=== PATIENT | male | born 1955 | race Two or more races ===

== ENCOUNTER → 2024-02-21 | Outpatient (CLI) | payer MEDICARE, SELFPAY ==
[2024-02-21 11:12] LABS: Basophils % (Auto) 1 % (0-2.5); Eosinophils # (Auto) 0.1 Thou/mm3 (0.0-0.5); Eosinophils % (Auto) 2 % (0-10); Hematocrit 41.6 % (41.0-53.0); Hemoglobin 13.3 g/dL (13.5-16.0); Immature Granulocytes % (Auto) 0 % (0-0); Immature Granulocytes Auto 0.01 Thou/mm3 (0.00-0.00); Lymphocytes % (Auto) 24 % (10-50); Mean Corpuscular Hemoglobin 27.3 pg (25.0-35.0); Mean Corpuscular Volume 85 fL (80-100); Monocytes # (Auto) 0.4 Thou/mm3 (0.0-0.8); Monocytes % (Auto) 10 % (0-12); Neutrophils # (Auto) 2.7 Thou/mm3 (1.8-7.7); Neutrophils % (Auto) 63 % (37-80); Nucleated Red Blood Cell % 0 /100 WBC (0); Platelet Count 216 Thou/mm3 (140-440); RDW Standard Deviation 47.3 fL (35.1-43.9); Red Blood Count 4.88 Miln/mm3 (4.50-5.90); White Blood Count 4.3 Thou/mm3 (3.8-10.6)
[2024-02-21 11:28] LABS: Iron 86 mcg/dL (65-175)
[2024-02-21 11:52] LABS: Alanine Aminotransferase 87 U/L (10-49); Albumin, Serum 4.3 gm/dL (3.4-4.8); Alkaline Phosphatase 319 U/L (46-116); Aspartate Amino Transferase 90 U/L (0-34); Bilirubin,Direct 0.2 mg/dL (0.0-0.3); Thyroid Stimulating Hormone 4.99 uIU/mL (0.55-4.78); Total Protein 6.6 gm/dL (5.7-8.2)
[2024-02-21 14:35] LABS: Bilirubin,Total 0.5 mg/dL (0.3-1.2); Cardiac Risk Estimate 2.2 RATIO (4.0-6.7); Cholesterol 125 mg/dL (132-200); HDL Cholesterol 56 mg/dL (40-60); LDL Cholesterol,Calculated 60 mg/dL (0-130); Triglycerides 47 mg/dL (30-150)
[2024-02-21 15:46] LABS: Vitamin B12 641 pg/mL (211-911)
[2024-02-21 16:05] LABS: Glucose Estimated Average 105 mg/dL (80-131); Hemoglobin A1C 5.3 % Hgb (4.8-6.0)
== END | disposition home or self-care (01) ==
PROVIDERS: PCP Family Medicine; Referring Provider Internal Medicine Cardiovascular Disease; Visit Provider Nurse Practitioner Family
DX: D64.9 Anemia, unspecified (principal); R73.01 Impaired fasting glucose; E03.9 Hypothyroidism, unspecified; I25.118 Atherosclerotic heart disease of native coronary artery with other forms of angina pectoris; E78.5 Hyperlipidemia, unspecified
CPT/HCPCS: 36415; 80061; 80076; 82607; 83036; 83540; 84443; 85025

== ENCOUNTER → 2024-02-24 | Outpatient (CLI) | payer MEDICARE, SELFPAY ==
[2024-03-02 06:59] LABS: Fecal Globin Result DETECTED (NOT DETECTED)
== END | disposition home or self-care (01) ==
LOC: SLDO 12:56
PROVIDERS: PCP Family Medicine; Referring Provider Nurse Practitioner Family; Visit Provider Nurse Practitioner Family
DX: D64.9 Anemia, unspecified (principal); R73.01 Impaired fasting glucose; E03.9 Hypothyroidism, unspecified
CPT/HCPCS: 82274; G0328

== ENCOUNTER → 2024-03-17 | Outpatient (CLI) | payer MEDICARE, SELFPAY ==
[2024-03-17 10:26] LABS: Alanine Aminotransferase 67 U/L (10-49); Albumin, Serum 4.4 gm/dL (3.4-4.8); Albumin/Globulin Ratio 1.8 (1.2-2.2); Alkaline Phosphatase 225 U/L (46-116); Anion Gap 8 (7-16); Aspartate Amino Transferase 56 U/L (0-34); BUN/Creatinine Ratio 24 Ratio (12-20); Bilirubin,Total 0.4 mg/dL (0.3-1.2); Blood Urea Nitrogen 22 mg/dL (9-23); Calcium 9.5 mg/dL (8.3-10.6); Calcium (Corrected) 9.5 mg/dL (8.5-10.1); Carbon Dioxide 28.2 mMol/L (20.0-31.0); Chloride 106 mMol/L (98-107); Creatinine (Component) 0.9 mg/dL (0.6-1.3); Globulin 2.4 gm/dL (2.3-3.5); Glucose 92 mg/dL (74-106); Osmolality,Calculated 286 (275-295); Potassium 4.5 mMol/L (3.4-5.1); Sodium 142 mMol/L (136-145); Total Protein 6.8 gm/dL (5.7-8.2); eGFR > 60 See Note
== END | disposition home or self-care (01) ==
LOC: COPL 09:14
PROVIDERS: PCP Family Medicine; Referring Provider Nurse Practitioner Family; Visit Provider Nurse Practitioner Family
DX: R74.01 Elevation of levels of liver transaminase levels (principal)
CPT/HCPCS: 36415; 80053

== ENCOUNTER → 2024-05-14 | Outpatient (CLI) | payer SELFPAY ==
[2024-05-14 11:45] LABS: Basophils # (Auto) 0.1 Thou/mm3 (0.0-0.2); Basophils % (Auto) 1 % (0-2.5); Eosinophils # (Auto) 0.1 Thou/mm3 (0.0-0.5); Eosinophils % (Auto) 2 % (0-10); Hematocrit 44.9 % (41.0-53.0); Hemoglobin 14.4 g/dL (13.5-16.0); Immature Granulocytes % (Auto) 0 % (0-0); Immature Granulocytes Auto 0.01 Thou/mm3 (0.00-0.00); Lymphocytes # (Auto) 1.4 Thou/mm3 (1.0-4.8); Lymphocytes % (Auto) 25 % (10-50); Mean Corpuscular HGB Conc 32.1 g/dl (31.0-37.0); Mean Corpuscular Hemoglobin 27.5 pg (25.0-35.0); Mean Corpuscular Volume 86 fL (80-100); Monocytes # (Auto) 0.6 Thou/mm3 (0.0-0.8); Monocytes % (Auto) 11 % (0-12); Neutrophils # (Auto) 3.5 Thou/mm3 (1.8-7.7); Neutrophils % (Auto) 62 % (37-80); Nucleated Red Blood Cell % 0 /100 WBC (0); Platelet Count 217 Thou/mm3 (140-440); RDW Standard Deviation 45.1 fL (35.1-43.9); Red Blood Count 5.23 Miln/mm3 (4.50-5.90); White Blood Count 5.7 Thou/mm3 (3.8-10.6)
[2024-05-14 12:03] LABS: Alanine Aminotransferase 41 U/L (10-49); Albumin, Serum 4.2 gm/dL (3.4-4.8); Albumin/Globulin Ratio 1.8 (1.2-2.2); Alkaline Phosphatase 155 U/L (46-116); Anion Gap 7 (7-16); Aspartate Amino Transferase 39 U/L (0-34); BUN/Creatinine Ratio 24 Ratio (12-20); Bilirubin,Direct 0.1 mg/dL (0.0-0.3); Bilirubin,Total 0.5 mg/dL (0.3-1.2); Blood Urea Nitrogen 22 mg/dL (9-23); Calcium 9.7 mg/dL (8.3-10.6); Calcium (Corrected) 9.7 mg/dL (8.5-10.1); Carbon Dioxide 29.2 mMol/L (20.0-31.0); Chloride 108 mMol/L (98-107); Cholesterol 214 mg/dL (132-200); Creatinine (Component) 0.9 mg/dL (0.6-1.3); Free T4 (Free Thyroxine) 1.05 ng/dL (0.89-1.76); Globulin 2.3 gm/dL (2.3-3.5); Glucose 100 mg/dL (74-106); HDL Cholesterol 54 mg/dL (40-60); LDL Cholesterol,Calculated 137 mg/dL (0-130); Osmolality,Calculated 290 (275-295); Potassium 4.8 mMol/L (3.4-5.1); Sodium 144 mMol/L (136-145); Thyroid Stimulating Hormone 2.68 uIU/mL (0.55-4.78); Total Protein 6.5 gm/dL (5.7-8.2); Triglycerides 114 mg/dL (30-150); eGFR > 60 See Note
== END | disposition home or self-care (01) ==
PROVIDERS: PCP Nurse Practitioner Family; Referring Provider Internal Medicine Cardiovascular Disease; Visit Provider Internal Medicine Cardiovascular Disease
DX: I10 Essential (primary) hypertension (principal); E07.9 Disorder of thyroid, unspecified; E03.9 Hypothyroidism, unspecified; E78.2 Mixed hyperlipidemia
CPT/HCPCS: 36415; 80053; 80061; 82248; 84439; 84443; 85025

== ENCOUNTER 2024-05-22 09:25 | Day surgery (SDC) | payer OTHER, SELFPAY ==
--- NOTE | 2024-05-21 06:00 | EKG_ITS ---
[facility] Test Date: 2024-05-21 Pat Name: RAJAT MCCONNELL Department: Room: - Gender: Male Licensed Esthetician: JHannah : [id number] Requested By: Dago Johnson Order Number: [id number] Reading MD: Dago Johnson Measurements Intervals Becker Rate: 58 P: AR: QRS: -21 QRSD: 101 T: 46 QT: 424 QTc: 417 Interpretive Statements SINUS RHYTHM WITH HIGH GRADE AV BLOCK BORDERLINE LEFT AXIS DEVIATION Compared to ECG 08/30/2023 18:17:03 No significant changes /[id number]
[2024-05-21 12:25] LABS: Alanine Aminotransferase 29 U/L (10-49); Albumin, Serum 4.2 gm/dL (3.4-4.8); Albumin/Globulin Ratio 1.6 (1.2-2.2); Alkaline Phosphatase 138 U/L (46-116); Anion Gap 10 (7-16); Aspartate Amino Transferase 28 U/L (0-34); BUN/Creatinine Ratio 20 Ratio (12-20); Bilirubin,Total 0.4 mg/dL (0.3-1.2); Blood Urea Nitrogen 18 mg/dL (9-23); Calcium 9.5 mg/dL (8.3-10.6); Calcium (Corrected) 9.5 mg/dL (8.5-10.1); Carbon Dioxide 26.3 mMol/L (20.0-31.0); Chloride 104 mMol/L (98-107); Creatinine (Component) 0.9 mg/dL (0.6-1.3); Globulin 2.6 gm/dL (2.3-3.5); Glucose 98 mg/dL (74-106); Osmolality,Calculated 281 (275-295); Potassium 4.2 mMol/L (3.4-5.1); Sodium 140 mMol/L (136-145); Total Protein 6.8 gm/dL (5.7-8.2); eGFR > 60 See Note
[2024-05-21 12:26] LABS: Partial Thromboplastin Time 28.4 Seconds (22.0-36.0); Prothrombin Time 11.1 Seconds (9.0-12.2)
[2024-05-22 10:03] VITALS: BP 106/74; PULSE 50; RESP 18; TEMP 36.3; O2SAT 95
[2024-05-22 10:11] VITALS: BMI 27.1
[2024-05-22] MEDS: SODIUM CHLORIDE 0.9% 500 ML 500 ML 20 ML IV (11:04)
[2024-05-22 11:10] VITALS: BP 115/72; PULSE 47; RESP 17; O2SAT 95
[2024-05-22 11:32] VITALS: BP 105/72; PULSE 54; RESP 18; TEMP 36.5; O2SAT 96
[2024-05-22 11:42] VITALS: BP 114/78; PULSE 53; RESP 19; O2SAT 96
[2024-05-22 11:52] VITALS: BP 122/77; PULSE 51; RESP 18; O2SAT 95
[2024-05-22 12:02] VITALS: BP 111/70; PULSE 50; RESP 18; O2SAT 97
== END 2024-05-22 12:20 | disposition home or self-care (01) ==
PROVIDERS: PCP Family Medicine; Referring Provider Specialist; Visit Provider Specialist
PROC: (CPT 43239; principal; 2024-05-22 10:00)
PROC: 0DBE8ZX Excision of Large Intestine, Via Natural or Artificial Opening Endoscopic, Diagnostic (ICD-10-PCS; CPT 45380; 2024-05-22 10:00)
DX: K57.31 Diverticulosis of large intestine without perforation or abscess with bleeding (principal); Z01.810 Encounter for preprocedural cardiovascular examination; K64.9 Unspecified hemorrhoids
CPT/HCPCS: 45378; 36415; 80053; 85610; 85730; 93005; A4649; J7040

== ENCOUNTER → 2024-07-07 | Outpatient (CLI) | payer OTHER, SELFPAY ==
[2024-07-07 11:05] LABS: Prostate Specific Antigen < 0.10 ng/mL (0-4.00)
== END | disposition home or self-care (01) ==
LOC: COPL 10:09
PROVIDERS: PCP Family Medicine; Referring Provider Urology; Visit Provider Urology
DX: C61 Malignant neoplasm of prostate (principal)
CPT/HCPCS: 36415; 84153

== ENCOUNTER → 2024-07-14 | Outpatient (BNVA) | payer OTHER, SELFPAY | END | disposition home or self-care (01) | PROVIDERS: PCP Nurse Practitioner Family; Referring Provider Nurse Practitioner Family; Visit Provider Urology | DX: C61 Malignant neoplasm of prostate (principal); N52.9 Male erectile dysfunction, unspecified; I25.10 Atherosclerotic heart disease of native coronary artery without angina pectoris; Z95.5 Presence of coronary angioplasty implant and graft; E78.00 Pure hypercholesterolemia, unspecified | CPT/HCPCS: 81003; 99212; G0463 ==

== ENCOUNTER → 2024-08-14 | Outpatient (CLI) | payer OTHER, SELFPAY ==
[2024-08-14 12:10] LABS: Alanine Aminotransferase 30 U/L (10-49); Albumin, Serum 4.2 gm/dL (3.4-4.8); Alkaline Phosphatase 114 U/L (46-116); Aspartate Amino Transferase 35 U/L (0-34); Bilirubin,Direct 0.2 mg/dL (0.0-0.3); Bilirubin,Total 0.8 mg/dL (0.3-1.2); Cardiac Risk Estimate 3.6 RATIO (4.0-6.7); Cholesterol 179 mg/dL (132-200); HDL Cholesterol 50 mg/dL (40-60); LDL Cholesterol,Calculated 111 mg/dL (0-130); Total Protein 6.8 gm/dL (5.7-8.2); Triglycerides 89 mg/dL (30-150)
== END | disposition home or self-care (01) ==
LOC: COPL 11:20
PROVIDERS: PCP Family Medicine; Referring Provider Internal Medicine Cardiovascular Disease; Visit Provider Internal Medicine Cardiovascular Disease
DX: I10 Essential (primary) hypertension (principal); E78.5 Hyperlipidemia, unspecified
CPT/HCPCS: 36415; 80061; 80076

== ENCOUNTER → 2025-01-13 | Outpatient (CLI) | payer OTHER, SELFPAY ==
[2025-01-13 10:55] LABS: Basophils # (Auto) 0.0 Thou/mm3 (0.0-0.2); Basophils % (Auto) 1 % (0-2.5); Eosinophils # (Auto) 0.1 Thou/mm3 (0.0-0.5); Eosinophils % (Auto) 1 % (0-10); Hematocrit 46.8 % (41.0-53.0); Hemoglobin 15.5 g/dL (13.5-16.0); Immature Granulocytes Auto 0.02 Thou/mm3 (0.00-0.00); Lymphocytes # (Auto) 1.2 Thou/mm3 (1.0-4.8); Lymphocytes % (Auto) 21 % (10-50); Mean Corpuscular HGB Conc 33.1 g/dl (31.0-37.0); Mean Corpuscular Hemoglobin 29.1 pg (25.0-35.0); Mean Corpuscular Volume 88 fL (80-100); Monocytes # (Auto) 0.5 Thou/mm3 (0.0-0.8); Monocytes % (Auto) 9 % (0-12); Neutrophils # (Auto) 3.7 Thou/mm3 (1.8-7.7); Neutrophils % (Auto) 68 % (37-80); Nucleated Red Blood Cell # 0.00 Thou/mm3 (0.00-0.00); Nucleated Red Blood Cell % 0 /100 WBC (0); Platelet Count 225 Thou/mm3 (140-440); RDW Standard Deviation 43.4 fL (35.1-43.9); Red Blood Count 5.32 Miln/mm3 (4.50-5.90); White Blood Count 5.5 Thou/mm3 (3.8-10.6)
[2025-01-13 11:03] LABS: Alanine Aminotransferase 27 U/L (10-49); Albumin, Serum 4.5 gm/dL (3.4-4.8); Albumin/Globulin Ratio 1.8 (1.2-2.2); Alkaline Phosphatase 114 U/L (46-116); Anion Gap 9 (7-16); Aspartate Amino Transferase 35 U/L (0-34); BUN/Creatinine Ratio 15 Ratio (12-20); Bilirubin,Total 0.6 mg/dL (0.3-1.2); Blood Urea Nitrogen 12 mg/dL (9-23); Calcium 9.7 mg/dL (8.3-10.6); Calcium (Corrected) 9.7 mg/dL (8.5-10.1); Carbon Dioxide 28.5 mMol/L (20.0-31.0); Chloride 106 mMol/L (98-107); Creatinine (Component) 0.8 mg/dL (0.6-1.3); Globulin 2.5 gm/dL (2.3-3.5); Glucose 106 mg/dL (74-106); Osmolality,Calculated 284 (275-295); Potassium 4.6 mMol/L (3.4-5.1); Sodium 143 mMol/L (136-145); Thyroid Stimulating Hormone 3.40 uIU/mL (0.55-4.78); Total Protein 7.0 gm/dL (5.7-8.2); eGFR > 60 See Note
== END | disposition home or self-care (01) ==
LOC: COPL 09:15
PROVIDERS: PCP Nurse Practitioner Family; Referring Provider Nurse Practitioner Family; Visit Provider Nurse Practitioner Family
DX: Z00.00 Encounter for general adult medical examination without abnormal findings (principal); E78.2 Mixed hyperlipidemia; Z95.5 Presence of coronary angioplasty implant and graft
CPT/HCPCS: 36415; 80053; 84443; 85025

== ENCOUNTER → 2025-01-28 | Outpatient (CLI) | payer OTHER, SELFPAY ==
--- NOTE | 2025-01-28 09:55 | XR_ITS ---
Examination: Shoulder, right, 3 views Technique: Shoulder AP internal rotation, AP external rotation, Y view shoulder, 3 views Exam date and time : January 28, 2025, 0959 hours INDICATION: Right shoulder pain beginning 10 days ago. FINDINGS: Significant osteopenia Moderate narrowing glenohumeral joint Mild osteoarthritis acromioclavicular joint No shoulder fracture or dislocation IMPRESSION: Moderate narrowing glenohumeral joint
== END | disposition home or self-care (01) ==
LOC: CDIM 09:49
PROVIDERS: PCP Family Medicine; Referring Provider Nurse Practitioner Family; Visit Provider Nurse Practitioner Family
DX: M25.811 Other specified joint disorders, right shoulder (principal)
CPT/HCPCS: 73030

== ENCOUNTER → 2025-03-16 | Outpatient (CLI) | payer OTHER, SELFPAY ==
[2025-03-16 14:23] LABS: Anion Gap 8 (7-16); BUN/Creatinine Ratio 22 Ratio (12-20); Blood Urea Nitrogen 20 mg/dL (9-23); Calcium 9.4 mg/dL (8.3-10.6); Carbon Dioxide 28.2 mMol/L (20.0-31.0); Chloride 107 mMol/L (98-107); Creatinine (Component) 0.9 mg/dL (0.6-1.3); Glucose 98 mg/dL (74-106); Osmolality,Calculated 287 (275-295); Potassium 4.3 mMol/L (3.4-5.1); Sodium 143 mMol/L (136-145); eGFR > 60 See Note
== END | disposition home or self-care (01) ==
LOC: COPL 12:28
PROVIDERS: PCP Family Medicine; Referring Provider Nurse Practitioner Family; Visit Provider Nurse Practitioner Family
DX: I10 Essential (primary) hypertension (principal)
CPT/HCPCS: 36415; 80048